=== PATIENT | male | born 1985 | race Two or more races ===

== ENCOUNTER 2025-04-17 17:22 | Emergency (ER) | payer MEDICAID, OTHER ==
[~2025-04-17] VITALS: Ht 180.3 cm; Wt 92.0 kg
[2025-04-17 17:24] VITALS: BP 131/90; PULSE 80; RESP 18; TEMP 97; O2SAT 99
--- NOTE | 2025-04-17 18:51 | DVH ---
Indication: CRUSH INJURY Technique: XY L 2ND FINGER XRAYXY Comparison: None FINDINGS/IMPRESSION: Soft tissue edema and laceration surrounding the 2nd digit distally. Mild irregularity scaphoid waist. Correlate with point tenderness to exclude fracture
--- NOTE | 2025-04-17 18:52 | DVH ---
Indication: FALL Technique: XY L KNEE 3V XRAYXY Comparison: None FINDINGS/IMPRESSION: No radiographic evidence for acute fracture or dislocation. There is mild tricompartmental degenerat anna joint disease. Small suprapatellar effusion. Prepatellar, pretibial edema
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
== END 2025-04-17 20:55 | disposition home or self-care (01) ==
LOC: ER 17:22
DX: S60.022A Contusion of left index finger without damage to nail, initial encounter (principal); S80.02XA Contusion of left knee, initial encounter; W23.0XXA Caught, crushed, jammed, or pinched between moving objects, initial encounter; Z88.6 Allergy status to analgesic agent; Z88.5 Allergy status to narcotic agent; Z88.0 Allergy status to penicillin; X58.XXXA Exposure to other specified factors, initial encounter; Y93.89 Activity, other specified; Y92.89 Other specified places as the place of occurrence of the external cause; Y99.8 Other external cause status
CPT/HCPCS: 73140; 73562

== ENCOUNTER 2025-05-13 22:41 | Inpatient (IN) | payer MEDICAID ==
[~2025-05-13] VITALS: Ht 180.3 cm; Wt 83.0 kg
[2025-05-14] MEDS ORDERED: KETOROLAC TROMETH 30 MG/ML 1ML VIAL IV ONE (04:15)
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
--- NOTE | 2025-05-14 05:35 | DVH ---
CLINICAL INDICATION: knee injury and pain TECHNIQUE: 3 views XY L KNEE 2V XRAY Comparison: XY L KNEE 3V XRAY on DOS: 04/17/25 FINDINGS: No acute fracture or dislocation. No obvious joint effusion, limited by suboptimal positioning and overlying material. Minimal tricompartmental osteoarthrosis. Unremarkable soft tissues. IMPRESSION: 1. No acute osseous abnormality of the left knee.
[2025-05-14] MEDS: CLINDAMYCIN 600MG IV 50 ML IV ONE (06:12)
[2025-05-14] MEDS: HYDROcodone-ACET 5/325MG TAB PO ONE (06:12)
[2025-05-14 06:49] LABS: Chloride 99 mmol/L (98-107); Potassium 3.7 mmol/L (3.5-5.1)
[2025-05-14 06:50] LABS: Anion Gap 6 (5-15); Carbon Dioxide 28 mmol/L (20-31)
[2025-05-14 06:51] LABS: Calcium 9.3 mg/dL (8.7-10.4)
[2025-05-14 06:52] LABS: Hematocrit 36.7 % (41.0-53.0); Hemoglobin 13.2 g/dL (13.5-17.5); Mean Corpuscular Hemoglobin 30.0 pg (28.0-32.0); Mean Corpuscular Volume 83.6 fL (80.0-100.0); Nucleated Red Blood Cells % 0.0 %
[2025-05-14 06:55] LABS: BUN/Creatinine Ratio 14.9 (10.0-20.0); Blood Urea Nitrogen 11 mg/dL (9-23)
[2025-05-14 06:57] LABS: Glucose 119 mg/dL (74-106); Sodium 133 mmol/L (136-145)
[2025-05-14] MEDS ORDERED: MORPHINE SULFATE INJ 2 MG/ml SYRG IV PRN (07:45)
[2025-05-14] MEDS ORDERED: ONDANSETRON HCL 4 MG/2 ML VIAL IV PRN (07:45)
[2025-05-14] MEDS ORDERED: HYDROcodone-ACET 5/325MG TAB PO PRN (07:45)
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
--- NOTE | 2025-05-14 08:28 | DVH ---
CLINICAL HISTORY: Increased calf tenderness TECHNIQUE: Color and duplex doppler imagine of the bilateral lower extremity veins was performed. Vessel compression and augmentation if possible was also performed. COMPARISON: None FINDINGS: Right Lower Extremity: Right common femoral vein: Normal compressibility and flow. Right superficial femoral vein: Normal compressibility and flow. Right popliteal vein: Normal compressibility and flow. There is a 3.8 cm Hsieh's cyst. Left Lower Extremity: Left common femoral vein: Normal compressibility and flow. Left superficial femoral vein: Normal compressibility and flow. Left popliteal vein: Normal compressibility and flow. There is a 1.4 x 2.0 cm left inguinal lesion. IMPRESSION: No sonographic evidence for DVT. 3.8 cm right Hsieh's cyst. 1.4 x 2.0 cm left inguinal lesion, favor Enlarged lymph node.
[2025-05-14] MEDS ORDERED: SERT-160 PO (09:02)
[2025-05-14] MEDS: PATIENTS OWN MEDICATION (Sertraline Hcl 1 TAB) PO SCH (10:00)
[2025-05-14] MEDS: BUPRENORPHINE -NALOXONE 8-2mg SL TAB SL SCH (10:25)
[2025-05-14] MEDS: ENOXAPARIN SOD 40 MG/0.4 ML SYRINGE SC SCH (10:25)
[2025-05-14] MEDS: CLINDAMYCIN 300MG IV 50 ML IV SCH (14:56)
[2025-05-14 15:51] VITALS: BP 111/74; PULSE 88; RESP 17; TEMP 99; O2SAT 98
[2025-05-14 16:03] VITALS: BP 111/74; PULSE 74; PULSE 88; RESP 18; TEMP 99; O2SAT 95; O2SAT 98
[2025-05-14] MEDS: ACETAMINOPHEN 325 MG TAB PO PRN (19:54)
[2025-05-14 20:00] VITALS: PULSE 71; RESP 17; O2SAT 98
[2025-05-14 21:00] VITALS: BP 102/60; PULSE 71; RESP 17; TEMP 99.7; O2SAT 98
[2025-05-15] VITALS (8 sets, daily range): BP systolic 90–104; BP diastolic 56–66; PULSE 58–74; RESP 16–18; TEMP 96.9–98.7; O2SAT 95–99
[2025-05-15 06:51] LABS: Hematocrit 37.4 % (41.0-53.0); Hemoglobin 12.8 g/dL (13.5-17.5); Mean Corpuscular Hemoglobin 29.6 pg (28.0-32.0); Mean Corpuscular Volume 86.4 fL (80.0-100.0); Nucleated Red Blood Cells % 0.1 %
[2025-05-15 07:09] LABS: Alanine Aminotransferase 23 U/L (7-40); Albumin 3.8 g/dL (3.2-4.8); Alkaline Phosphatase 101 U/L (46-116); Anion Gap 9 (5-15); BUN/Creatinine Ratio 14.1 (10.0-20.0); Blood Urea Nitrogen 9 mg/dL (9-23); Calcium 8.8 mg/dL (8.7-10.4); Carbon Dioxide 23 mmol/L (20-31); Glucose 101 mg/dL (74-106); Potassium 3.7 mmol/L (3.5-5.1); Sodium 140 mmol/L (136-145); Total Protein 6.3 g/dL (5.7-8.2)
[2025-05-15 07:10] LABS: Bilirubin, Total 0.9 mg/dL (0.2-1.0)
[2025-05-15 07:18] LABS: Chloride 108 mmol/L (98-107)
[2025-05-15] MEDS: SERTRALINE HCL 50 MG TAB PO SCH (08:50)
[2025-05-15 13:05] LABS: Urine Protein, UAD Negative (Negative)
[2025-05-15 13:22] LABS: Amphetamine Screen, Urine Neg (NEGATIVE); Barbiturate Scree,Urine Neg (NEGATIVE); Benzodiazephine Screen, Urine Neg (NEGATIVE); Cannabinoid Screen, Urine Neg (NEGATIVE); Cocaine Screen, Urine Neg (NEGATIVE); Opiate Scree,Urine Pos (NEGATIVE); Phencyclidine Screen, Urine Neg (NEGATIVE)
[2025-05-15] MEDS: HYDROcodone-ACET 10/325MG TAB PO PRN (15:40)
--- NOTE | 2025-05-15 15:48 | DVHPN2 ---
Subjective 39-year-old male with a known history of rheumatoid arthritis, anxiety and depression disorder presented to the hospital with a left lower extremity pain some found to have 1. Left lower extremity cellulitis 2. Left lower extremity pain 3. Anxiety and depression disorder currently compensated 4. History of rheumatoid arthritis -continue IV antibiotics, pain meds as needed, plan of care discussed with the patient. Changes from previous H/P or p: No Changes Musculoskeletal: other Skin: Lesions Objective Vitals Vital Signs Date Time Temp Pulse Resp B/P (MAP) Pulse Ox O2 Delivery O2 Flow Rate FiO2 05/15/25 12:53 96.9 58 16 100/56 (71) 98 96.9 05/15/25 08:00 Room Air* 0 21 Intake/Output Intake and Output 05/15/25 07:00 Intake Total 450 ml Balance 450 ml Intake Oral 400 ml IV Total 50 ml # Voids 2 Medications Current Medications Medications Dose Ordered Sig/Tani Route Start Time Stop Time Status Last Admin Dose Admin Ondansetron HCl 4 mg Q4HP PRN IV 05/14/25 07:45 Enoxaparin Sodium 40 mg DAILY SC 05/14/25 10:00 05/15/25 08:51 40 MG Acetaminophen 650 mg Q6HP PRN PO 05/14/25 07:45 05/14/25 19:54 650 MG Clindamycin Phosphate 50 ml @ 50 mls/hr Q8HR IV 05/14/25 14:00 05/15/25 13:44 50 MLS/HR Ceftriaxone Sodium 50 ml @ 100 mls/hr DAILY@09 IV 05/14/25 09:15 05/15/25 08:50 100 MLS/HR Buprenorphine HCl 1 tab BID SL 05/14/25 10:00 05/15/25 09:00 1 TAB Sertraline HCl 100 mg DAILY PO 05/15/25 10:00 05/15/25 08:50 100 MG Acetaminophen/ Hydrocodone Bitart 1 tab Q4HP PRN PO 05/15/25 15:00 05/15/25 15:40 1 TAB Laboratory Results Laboratory Tests 05/15/25 05:37 Chemistry Test 05/15/25 05:37 Albumin 3.8 g/dL (3.2-4.8) Calcium Level 8.8 mg/dL (8.7-10.4) Total Protein 6.3 g/dL (5.7-8.2) LFT Test 05/15/25 05:37 Alanine Aminotransferase (ALT) 23 U/L (7-40) Alkaline Phosphatase 101 U/L (46-116) Aspartate Amino Transferase (AST) 31 U/L (13-40) Total Bilirubin 0.9 mg/dL (0.2-1.0) Urinalysis Test 05/15/25 12:57 Urine Color Yellow (Yellow) Urine Clarity Clear (Clear) Urine pH 8.0 (5.0-9.0) Urine Specific [place] 1.023 (1.001-1.035) Urine Protein Negative (Negative) Urine Ketones Negative (Negative) Urine Blood Negative /uL (Negative) Urine Nitrite Negative (Negative) Urine Bilirubin Negative (Negative) Urine Urobilinogen Over mg/dL (Negative) Urine Leukocyte Esterase Negative /uL (Negative) Urine RBC 1 /hpf (0 - 3) Urine Microscopic WBC < 1 /HPF (0-3) Urine Squamous Epithelial Cells Few /hpf (<5) Urine Bacteria None seen /hpf (None Seen) Urine Glucose Normal mg/dL (Normal) Microbiology Microbiology Date/Time Source Procedure Growth Status 05/14/25 10:13 Blood Blood Culture - Preliminary NO GROWTH AFTER 24 HOURS OF INCUBATION. Resulted Assessment/Plan Assessment/Plan 39-year-old male with a known history of rheumatoid arthritis, anxiety and depression disorder presented to the hospital with a left lower extremity pain some found to have 1. Left lower extremity cellulitis 2. Left lower extremity pain 3. Anxiety and depression disorder currently compensated 4. History of rheumatoid arthritis -continue IV antibiotics, pain meds as needed, plan of care discussed with the patient. Plan discussed with: Patient My Orders Orders - CHRIS FONTANEZ MD Procedure Category Date Status Time Hydrocodone-Acet PHA 05/15/25 In Process 10/325mg Tab ([place] 15:00 Date of Service: May 15, 2025 Billing Provider: CHRIS FONTANEZ MD Common Visit Codes: [id number] INP/OBS CARE(HIGH) CHRIS FONTANEZ MD May 15, 2025 15:48
[2025-05-15] MEDS: HYDROcodone-ACET 10/325MG TAB ONE (20:37)
[2025-05-16 01:00] VITALS: BP 116/70; PULSE 56; RESP 18; TEMP 97.7; O2SAT 97
[2025-05-16] MEDS: HYDROcodone-ACET 10/325MG TAB ONE (04:55)
[2025-05-16 05:00] VITALS: BP 110/67; PULSE 56; RESP 19; TEMP 97.5; O2SAT 98
[2025-05-16 09:00] VITALS: BP 107/62; PULSE 71; RESP 20; TEMP 97.3; O2SAT 98
[2025-05-16 13:00] VITALS: BP 118/84; PULSE 55; RESP 16; TEMP 98.7; O2SAT 97
--- NOTE | 2025-05-16 15:53 | DVHPN2 ---
Subjective 39-year-old male with a known history of rheumatoid arthritis, anxiety and depression disorder presented to the hospital with a left lower extremity pain some found to have 1. Left lower extremity cellulitis 2. Left lower extremity pain 3. Anxiety and depression disorder currently compensated 4. History of rheumatoid arthritis -continue IV antibiotics, pain meds as needed, plan of care discussed with the patient. 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 Medications Current Medications Medications Dose Ordered Sig/Tani Route Start Time Stop Time Status Last Admin Dose Admin Ondansetron HCl 4 mg Q4HP PRN IV 05/14/25 07:45 Enoxaparin Sodium 40 mg DAILY SC 05/14/25 10:00 05/15/25 08:51 40 MG Acetaminophen 650 mg Q6HP PRN PO 05/14/25 07:45 05/14/25 19:54 650 MG Clindamycin Phosphate 50 ml @ 50 mls/hr Q8HR IV 05/14/25 14:00 05/16/25 14:15 50 MLS/HR Ceftriaxone Sodium 50 ml @ 100 mls/hr DAILY@09 IV 05/14/25 09:15 05/16/25 09:16 100 MLS/HR Buprenorphine HCl 1 tab BID SL 05/14/25 10:00 05/15/25 09:00 1 TAB Sertraline HCl 100 mg DAILY PO 05/15/25 10:00 05/16/25 09:14 100 MG Acetaminophen/ Hydrocodone Bitart 1 tab Q4HP PRN PO 05/15/25 15:00 05/16/25 14:18 1 TAB Laboratory Results Laboratory Tests 05/15/25 05:37 Urinalysis Test 05/15/25 12:57 Urine Color Yellow (Yellow) Urine Clarity Clear (Clear) Urine pH 8.0 (5.0-9.0) Urine Specific [place] 1.023 (1.001-1.035) Urine Protein Negative (Negative) Urine Ketones Negative (Negative) Urine Blood Negative /uL (Negative) Urine Nitrite Negative (Negative) Urine Bilirubin Negative (Negative) Urine Urobilinogen Over mg/dL (Negative) Urine Leukocyte Esterase Negative /uL (Negative) Urine RBC 1 /hpf (0 - 3) Urine Microscopic WBC < 1 /HPF (0-3) Urine Squamous Epithelial Cells Few /hpf (<5) Urine Bacteria None seen /hpf (None Seen) Urine Glucose Normal mg/dL (Normal) Microbiology Microbiology Date/Time Source Procedure Growth Status 05/14/25 10:13 Blood Blood Culture - Preliminary NO GROWTH AFTER 48 HOURS OF INCUBATION. Resulted 05/14/25 06:25 Leg Left Gram Stain - Final Resulted 05/14/25 06:25 Wound Culture - Preliminary Streptococcus Group A Resulted Assessment/Plan Assessment/Plan 39-year-old male with a known history of rheumatoid arthritis, anxiety and depression disorder presented to the hospital with a left lower extremity pain some found to have 1. Left lower extremity cellulitis 2. Left lower extremity pain 3. Anxiety and depression disorder currently compensated 4. History of rheumatoid arthritis -continue IV antibiotics, pain meds as needed, plan of care discussed with the patient. Plan discussed with: Patient Date of Service: May 16, 2025 Billing Provider: CHRIS FONTANEZ MD Common Visit Codes: [id number] INP/OBS CARE(HIGH) CHRIS FONTANEZ MD May 16, 2025 15:53
[2025-05-16 21:00] VITALS: BP 118/74; PULSE 66; RESP 16; TEMP 97.9; O2SAT 98
[2025-05-17] VITALS (7 sets, daily range): BP systolic 96–137; BP diastolic 56–90; PULSE 54–72; RESP 16–20; TEMP 97.3–98.3; O2SAT 97–99
--- NOTE | 2025-05-17 15:51 | DVHPN2 ---
Subjective 39-year-old male with a known history of rheumatoid arthritis, anxiety and depression disorder presented to the hospital with a left lower extremity pain some found to have 1. Left lower extremity cellulitis 2. Left lower extremity pain 3. Anxiety and depression disorder currently compensated 4. History of rheumatoid arthritis -continue IV antibiotics, pain meds as needed, plan of care discussed with the patient. 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 Medications Current Medications Medications Dose Ordered Sig/Tani Route Start Time Stop Time Status Last Admin Dose Admin Ondansetron HCl 4 mg Q4HP PRN IV 05/14/25 07:45 Enoxaparin Sodium 40 mg DAILY SC 05/14/25 10:00 05/17/25 09:20 40 MG Acetaminophen 650 mg Q6HP PRN PO 05/14/25 07:45 05/14/25 19:54 650 MG Clindamycin Phosphate 50 ml @ 50 mls/hr Q8HR IV 05/14/25 14:00 05/17/25 13:54 50 MLS/HR Ceftriaxone Sodium 50 ml @ 100 mls/hr DAILY@09 IV 05/14/25 09:15 05/17/25 09:14 100 MLS/HR Buprenorphine HCl 1 tab BID SL 05/14/25 10:00 05/15/25 09:00 1 TAB Sertraline HCl 100 mg DAILY PO 05/15/25 10:00 05/17/25 09:19 100 MG Acetaminophen/ Hydrocodone Bitart 1 tab Q4HP PRN PO 05/15/25 15:00 05/17/25 06:15 1 TAB Laboratory Results Laboratory Tests 05/15/25 05:37 Urinalysis Test 05/15/25 12:57 Urine Color Yellow (Yellow) Urine Clarity Clear (Clear) Urine pH 8.0 (5.0-9.0) Urine Specific [place] 1.023 (1.001-1.035) Urine Protein Negative (Negative) Urine Ketones Negative (Negative) Urine Blood Negative /uL (Negative) Urine Nitrite Negative (Negative) Urine Bilirubin Negative (Negative) Urine Urobilinogen Over mg/dL (Negative) Urine Leukocyte Esterase Negative /uL (Negative) Urine RBC 1 /hpf (0 - 3) Urine Microscopic WBC < 1 /HPF (0-3) Urine Squamous Epithelial Cells Few /hpf (<5) Urine Bacteria None seen /hpf (None Seen) Urine Glucose Normal mg/dL (Normal) Microbiology Microbiology Date/Time Source Procedure Growth Status 05/14/25 10:13 Blood Blood Culture - Preliminary NO GROWTH AFTER 72 HOURS OF INCUBATION. Resulted 05/14/25 06:25 Leg Left Gram Stain - Final Resulted 05/14/25 06:25 Wound Culture - Preliminary Streptococcus Group A Resulted Assessment/Plan Assessment/Plan 39-year-old male with a known history of rheumatoid arthritis, anxiety and depression disorder presented to the hospital with a left lower extremity pain some found to have 1. Left lower extremity cellulitis 2. Left lower extremity pain 3. Anxiety and depression disorder currently compensated 4. History of rheumatoid arthritis -continue IV antibiotics, pain meds as needed, plan of care discussed with the patient. -consult social work specialist for recuperative care for home. Plan discussed with: Patient My Orders Orders - CHRIS FONTANEZ MD Procedure Category Date Status Time * System Manager CONS 05/17/25 Transmitted Consult Date of Service: May 17, 2025 Billing Provider: CHRIS FONTANEZ MD Common Visit Codes: [id number] INP/OBS CARE(HIGH) CHRIS FONTANEZ MD May 17, 2025 15:51
[2025-05-18] VITALS (7 sets, daily range): BP systolic 105–116; BP diastolic 57–74; PULSE 50–64; RESP 17–20; TEMP 97–98.2; O2SAT 96–99
--- NOTE | 2025-05-18 16:15 | DVHPN2 ---
Subjective 39-year-old male with a known history of rheumatoid arthritis, anxiety and depression disorder presented to the hospital with a left lower extremity pain some found to have 1. Left lower extremity cellulitis 2. Left lower extremity pain 3. Anxiety and depression disorder currently compensated 4. History of rheumatoid arthritis -continue IV antibiotics, pain meds as needed, plan of care discussed with the patient. 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 Medications Current Medications Medications Dose Ordered Sig/Tani Route Start Time Stop Time Status Last Admin Dose Admin Ondansetron HCl 4 mg Q4HP PRN IV 05/14/25 07:45 Enoxaparin Sodium 40 mg DAILY SC 05/14/25 10:00 05/18/25 08:42 40 MG Acetaminophen 650 mg Q6HP PRN PO 05/14/25 07:45 05/14/25 19:54 650 MG Clindamycin Phosphate 50 ml @ 50 mls/hr Q8HR IV 05/14/25 14:00 05/18/25 13:59 50 MLS/HR Ceftriaxone Sodium 50 ml @ 100 mls/hr DAILY@09 IV 05/14/25 09:15 05/18/25 08:41 100 MLS/HR Buprenorphine HCl 1 tab BID SL 05/14/25 10:00 05/15/25 09:00 1 TAB Sertraline HCl 100 mg DAILY PO 05/15/25 10:00 05/18/25 08:41 100 MG Acetaminophen/ Hydrocodone Bitart 1 tab Q4HP PRN PO 05/15/25 15:00 05/18/25 14:07 1 TAB Laboratory Results Laboratory Tests 05/15/25 05:37 Urinalysis Test 05/15/25 12:57 Urine Color Yellow (Yellow) Urine Clarity Clear (Clear) Urine pH 8.0 (5.0-9.0) Urine Specific [place] 1.023 (1.001-1.035) Urine Protein Negative (Negative) Urine Ketones Negative (Negative) Urine Blood Negative /uL (Negative) Urine Nitrite Negative (Negative) Urine Bilirubin Negative (Negative) Urine Urobilinogen Over mg/dL (Negative) Urine Leukocyte Esterase Negative /uL (Negative) Urine RBC 1 /hpf (0 - 3) Urine Microscopic WBC < 1 /HPF (0-3) Urine Squamous Epithelial Cells Few /hpf (<5) Urine Bacteria None seen /hpf (None Seen) Urine Glucose Normal mg/dL (Normal) Microbiology Microbiology Date/Time Source Procedure Growth Status 05/14/25 10:13 Blood Blood Culture - Preliminary NO GROWTH AFTER 72 HOURS OF INCUBATION. Resulted 05/14/25 06:25 Leg Left Gram Stain - Final Resulted 05/14/25 06:25 Wound Culture - Preliminary Streptococcus Group A Resulted Assessment/Plan Assessment/Plan 39-year-old male with a known history of rheumatoid arthritis, anxiety and depression disorder presented to the hospital with a left lower extremity pain some found to have 1. Left lower extremity cellulitis 2. Left lower extremity pain 3. Anxiety and depression disorder currently compensated 4. History of rheumatoid arthritis -continue IV antibiotics, pain meds as needed, plan of care discussed with the patient. -get a CT of the left leg to make sure there was no abscess -consult social service coordinator for recuperative care for home. Plan discussed with: Patient Date of Service: May 18, 2025 Billing Provider: CHRIS FONTANEZ MD Common Visit Codes: [id number] INP/OBS CARE(HIGH) CHRIS FONTANEZ MD May 18, 2025 16:15
--- NOTE | 2025-05-18 22:04 | DVH ---
CLINICAL HISTORY: Ruled out abscess of the left calf TECHNIQUE: CT of the left lower extremity was performed without intravenous contrast. This exam was performed according to our departmental dose optimization program. Up-to-date CT equipment and radiation dose reduction techniques are utilized as appropriate. CTDI 7.75 mGy DLP 417.21 mGy.cm COMPARISON: US BILAT LOWER DVT on DOS: 05/14/25, XY L KNEE 2V XRAY on DOS: 05/14/25 FINDINGS: Normal mineralization and alignment. Joint spaces are preserved. There is no acute fracture. No focal osteopenia or cortical destruction to suggest osteomyelitis. There is diffuse subcutaneous edema in the left lower extremity more pronounced Up to moderate distally. No fluid collection or soft tissue gas. The Muscle bundles about the visualized left lower extremity are intact. IMPRESSION: 1. No acute fracture or evidence of osteomyelitis. 2. Diffuse subcutaneous edema in the visualized left lower extremity pronounced Up to moderate distally. 3. No soft tissue gas or fluid collection.
[2025-05-19 01:00] VITALS: BP 117/78; PULSE 53; RESP 20; TEMP 98; O2SAT 98
[2025-05-19 04:52] VITALS: BP 105/68; PULSE 48; RESP 20; TEMP 98; O2SAT 98
[2025-05-19 08:00] VITALS: PULSE 58; RESP 18; O2SAT 100
[2025-05-19 09:00] VITALS: BP 119/84; PULSE 58; RESP 18; TEMP 97.6; O2SAT 100
[2025-05-19 13:00] VITALS: BP 115/71; PULSE 60; RESP 18; TEMP 97.3; O2SAT 100
[2025-05-19] MEDS ORDERED: CEPH500C PO (14:10)
[2025-05-19] MEDS ORDERED: DOXY100C79 PO (14:10)
[2025-05-19] MEDS ORDERED: NALO4SPR2 (14:10)
[2025-05-19] MEDS ORDERED: HYDR-4902 PO (14:10)
[2025-05-19] MEDS ORDERED: AML5T PO (14:10)
[2025-05-19] MEDS ORDERED: POLY335015 PO (14:10)
--- NOTE | 2025-05-19 14:13 | DVHDS2 ---
Discharge Summary Date of Admission May 14, 2025 at 07:34 Date of Discharge: May 19, 2025 Labs/Diagnostic Data: Laboratory Results Test 05/15/25 12:57 05/15/25 05:37 05/14/25 10:13 Urine Color Yellow (Yellow) Urine Clarity Clear (Clear) Urine pH 8.0 (5.0-9.0) Urine Specific Mallard 1.023 (1.001-1.035) Urine Protein Negative (Negative) Urine Ketones Negative (Negative) Urine Blood Negative /uL (Negative) Urine Nitrite Negative (Negative) Urine Bilirubin Negative (Negative) Urine Urobilinogen Over mg/dL (Negative) Urine Leukocyte Esterase Negative /uL (Negative) Urine RBC 1 /hpf (0 - 3) Urine Microscopic WBC < 1 /HPF (0-3) Urine Squamous Epithelial Cells Few /hpf (<5) Urine Bacteria None seen /hpf (None Seen) Urine Glucose Normal mg/dL (Normal) Urine Opiates Screen Pos (NEGATIVE) Urine Fentanyl Screen Neg (NEGATIVE) Urine Barbiturates Screen Neg (NEGATIVE) Urine Phencyclidine Screen Neg (NEGATIVE) Urine Amphetamines Screen Neg (NEGATIVE) Urine Benzodiazepines Screen Neg (NEGATIVE) Urine Cocaine Screen Neg (NEGATIVE) Urine Cannabinoids Screen Neg (NEGATIVE) White Blood Count 4.8 10^3/uL (4.4-10.8) Red Blood Count 4.33 10^6/uL (4.5-5.90) Hemoglobin 12.8 g/dL (13.5-17.5) Hematocrit 37.4 % (41.0-53.0) Mean Corpuscular Volume 86.4 fL (80.0-100.0) Mean Corpuscular Hemoglobin 29.6 pg (28.0-32.0) Mean Corpuscular Hemoglobin Concent 34.3 g/dL (32.0-36.0) Red Cell Distribution Width 13.3 % (11.8-14.3) Platelet Count 148 10^3/uL (140-450) Mean Platelet Volume 8.7 fL (6.9-10.8) Neutrophils (%) (Auto) 75.6 % (37.0-80.0) Lymphocytes (%) (Auto) 14.8 % (10.0-50.0) Monocytes (%) (Auto) 8.0 % (0.0-12.0) Eosinophils (%) (Auto) 1.6 % (0.0-7.0) Basophils (%) (Auto) 0.0 % (0.0-2.0) Neutrophils # (Auto) 3.7 10 ^3/uL (1.6-8.6) Lymphocytes # (Auto) 0.7 10 ^3/uL (0.4-5.4) Monocytes # (Auto) 0.4 10 ^3/uL (0-1.3) Eosinophils # (Auto) 0.1 10 ^3/uL (0-0.8) Basophils # (Auto) 0 10 ^3/uL (0-0.2) Nucleated Red Blood Cells 0.1 % Sodium Level 140 mmol/L (136-145) Potassium Level 3.7 mmol/L (3.5-5.1) Chloride Level 108 mmol/L (98-107) Carbon Dioxide Level 23 mmol/L (20-31) Anion Gap 9 (5-15) Blood Urea Nitrogen 9 mg/dL (9-23) Creatinine 0.64 mg/dL (0.700-1.30) Glomerular Filtration Rate Calc 124 mL/min (>90) BUN/Creatinine Ratio 14.1 (10.0-20.0) Serum Glucose 101 mg/dL (74-106) Calcium Level 8.8 mg/dL (8.7-10.4) Total Bilirubin 0.9 mg/dL (0.2-1.0) Aspartate Amino Transferase (AST) 31 U/L (13-40) Alanine Aminotransferase (ALT) 23 U/L (7-40) Alkaline Phosphatase 101 U/L (46-116) Total Protein 6.3 g/dL (5.7-8.2) Albumin 3.8 g/dL (3.2-4.8) Lactic Acid Level 1.1 mmol/L (0.4-2.0) C-Reactive Protein High Sensitivity 11.84 mg/dL (<1.0) Other Laboratory Tests 05/15/25 05:37 Brief Hx & Hospital Course: 39-year-old male with a known history of rheumatoid arthritis, anxiety and depression disorder presented to the hospital with a left lower extremity pain some found to have left lower extremity cellulitis. Patient does have known history of anxiety and depression disorder currently compensated. Patient underwent CT of the left leg which shows no evidence of any drainable abscess or collection. Patient's received IV antibiotics we will be discharged home on p.o. antibiotics and pain pills as needed. Patient is being discharged under stable condition. Condition at Discharge: Stable Final Diagnosis/Problems List 39-year-old male with a known history of rheumatoid arthritis, anxiety and depression disorder presented to the hospital with a left lower extremity pain some found to have 1. Left lower extremity cellulitis 2. Left lower extremity pain 3. Anxiety and depression disorder currently compensated 4. History of rheumatoid arthritis -continue IV antibiotics, pain meds as needed, plan of care discussed with the patient. -get a CT of the left leg to make sure there was no abscess -consult social welfare clerk for recuperative care for home. Discharge Disposition: Home SNF Discharge Will this Physician continue t: No Discharge Instruct/Medications Diet: Cardiac 2g Na,low cholest Activity: See Comment Activity comment: No driving, no signing legal documents, no playing on machinery while on narcotics Follow Up/Referral: Please follow up with the PCP in 1-2 weeks Medications: Keflex, doxycycline, Barnhart, Narcan, MiraLax as prescribed. New Medications: Cephalexin Monohydrate (Cephalexin) 500 Mg Cap 1 CAP PO TID, #30 CAP Doxycycline (Monohydrate) (Doxycycline) 100 Mg Cap 100 MG PO BID for 10 Days, #20 CAP Hydrocodone-Acetaminophen (Hydrocodone Bitartrate/AC 5-325 mg) 1 Tab Tab 1 TAB PO Q8HP PRN, #14 TAB Naloxone HCl (Narcan) 4 Mg/0.1 Ml Spr 4 MG NA WORKS MANAGER, #2 SPRAY Polyethylene Glycol 3350 (Miralax) 17 Gm Pow 17 GM PO DAILYP PRN, #14 POW Continued Medications: Sertraline Hcl (Sertraline Hcl) 100 Mg Tab 1 TAB PO DAILY Scheduled Cephalexin Monohydrate (Cephalexin), 1 CAP PO TID Doxycycline (Monohydrate) (Doxycycline), 100 MG PO BID Naloxone HCl (Narcan), 4 MG NA WORKS MANAGER Sertraline Hcl (Sertraline Hcl), 1 TAB PO DAILY, (Reported) Scheduled PRN Hydrocodone-Acetaminophen (Hydrocodone Bitartrate/AC 5-325 mg), 1 TAB PO Q8HP PRN Polyethylene Glycol 3350 (Miralax), 17 GM PO DAILYP PRN Discharge Statement: "Patient was advised to return to the ER or call 911 if any headaches, dizziness, shortness of breath, chest pain, abdominal pain, bleeding, fevers, or worsening of medical condition. Patient was counseled about treatment plan, medications, possible side effects, patientverbalized understanding. All questions were answered to the best of my ability. This discharge took greater then 30 minutes in planning, reviewing documentation, counseling the patient, and discussing with other team members." ASSESSMENT ASSESSMENT Assessment 39-year-old male with a known history of rheumatoid arthritis, anxiety and depression disorder presented to the hospital with a left lower extremity pain some found to have 1. Left lower extremity cellulitis 2. Left lower extremity pain 3. Anxiety and depression disorder currently compensated 4. History of rheumatoid arthritis -continue IV antibiotics, pain meds as needed, plan of care discussed with the patient. -get a CT of the left leg to make sure there was no abscess -consult social welfare clerk for recuperative care for home. Date of Service: May 19, 2025 Billing Provider: CHRIS FONTANEZ MD Common Visit Codes: 50319-YWR/OBS DISCH DAY >30min CHRIS FONTANEZ MD May 19, 2025 14:13
== END 2025-05-19 16:16 | disposition home or self-care (01) | DRG 383 ==
LOC: ER 22:41 → OVERFLOW 05-14 07:34 → WEST WING 05-14 15:51
PROVIDERS: ADMIT Internal Medicine; ATTEND Internal Medicine
DX: L03.116 Cellulitis of left lower limb (principal); Z59.00 Homelessness unspecified; F32.A Depression, unspecified; F17.210 Nicotine dependence, cigarettes, uncomplicated; F41.9 Anxiety disorder, unspecified; Z88.6 Allergy status to analgesic agent; Z88.5 Allergy status to narcotic agent; Z88.0 Allergy status to penicillin
CPT/HCPCS: 36415; 73502; 73560; 73700; 80048; 80053; 80307; 81001; 83605; 85025; 86141; 87040; 87081; 87205; 93970; 96365; G0378; J3490; J7042